=== PATIENT | male | born 1970 | race Caucasian/White ===

== ENCOUNTER 2017-10-27 17:28 | Emergency (ER) | payer BC, OTHER ==
[2017-10-27 17:39] VITALS: BP 141/107; PULSE 92; TEMP 97; BMI 26.6
[2017-10-27] MEDS ORDERED: IBUPROFEN 400 MG TABLET (FP) PO ONE (17:49)
[2017-10-27] MEDS ORDERED: IBUPROFEN 600 MG TABLET (FP) PO ONE ×2 (17:56)
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
== END 2017-10-27 19:43 | disposition home or self-care (01) ==
LOC: JERFT 17:28
DX: S16.1XXA Strain of muscle, fascia and tendon at neck level, initial encounter (principal); V49.49XA Driver injured in collision with other motor vehicles in traffic accident, initial encounter; Y92.414 Local residential or business street as the place of occurrence of the external cause; Y93.89 Activity, other specified; Y99.8 Other external cause status
CPT/HCPCS: 72050-TC-FY; 99281-25